=== PATIENT | female | born 1975 | race African-American/Black ===

== ENCOUNTER 2023-12-30 14:21 | Emergency (ER) | payer MEDICARE, MEDICAID ==
[2023-12-30] MEDS ORDERED: Sodium Chloride 0.9% 10 ML Syringe FLUSH PRN (15:11)
[2023-12-30 15:33] LABS: BASOPHILS ABSOLUTE AUTO 0.06 10^3/uL (0.00-0.10); BASOPHILS PERCENT AUTO 1.1 % (0.0-1.0); EOSINOPHILS PERCENT AUTO 3.7 % (1.0-3.0); HEMATOCRIT 37.4 % (37.0-47.0); HEMOGLOBIN 11.8 g/dL (12.0-16.0); LYMPHOCYTES ABSOLUTE AUTO 2.25 10^3/uL (1.00-4.00); LYMPHOCYTES PERCENT AUTO 41.2 % (20.0-40.0); MEAN CORPUSCULAR HEMOGLOBIN 26.4 pg (27.0-31.0); MEAN CORPUSCULAR HGB CONC 31.6 g/dL (32.0-36.0); MEAN CORPUSCULAR VOLUME 83.7 fL (82.0-92.0); MEAN PLATELET VOLUME 11.3 fL (7.4-10.4); MONOCYTES PERCENT AUTO 5.5 % (2.0-8.0); NEUTROPHILS ABSOLUTE AUTO 2.65 10^3/uL (2.50-7.00); NEUTROPHILS PERCENT AUTO 48.5 % (50.0-70.0); PLATELET COUNT,PLT 228 10^3/uL (150-400); RED BLOOD CELL COUNT 4.47 10^6/uL (3.80-5.50); WHITE BLOOD CELL COUNT,WBC 5.46 10^3/uL (5.00-10.00)
[2023-12-30 15:53] LABS: ALANINE AMINOTRANSFERASE,ALT 16 U/L (14-63); ALBUMIN 3.36 g/dL (3.40-5.00); ALKALINE PHOSPHATASE 104 U/L (46-116); ANION GAP 13.3 mmol/L (5-15); ASPARTATE AMNIOTRANSFERASE,AST 13 U/L (15-37); BILIRUBIN TOTAL 0.4 mg/dL (0.2-1.0); BLOOD UREA NITROGEN,BUN 8 mg/dL (7-18); CALCIUM 8.8 mg/dL (8.7-10.3); CARBON DIOXIDE,CO2 27.6 mmol/L (21.0-32.0); CHLORIDE,CL 103 mmol/L (98-107); CREATININE 0.84 mg/dL (0.51-1.17); EST CRCL DRUG DOSING (CG) 64.78 mL/min; GLUCOSE RANDOM 75 mg/dL (70-140); POTASSIUM,K 3.9 mmol/L (3.5-5.1); PROTEIN TOTAL,TP 7.4 g/dL (6.4-8.2); SODIUM,NA 140 mmol/L (136-145)
[2023-12-30 16:04] LABS: ESTIMATED GFR 86 mL/min (>=60)
[2023-12-30 16:05] LABS: B-TYPE NATRIURETIC PEPTIDE,BNP < 5 pg/mL (0-100)
[2023-12-30] MEDS: methylPREDNISolone Sodium Succinate 125 MG/2 ML SDV IVPUSH ONE (16:36)
[2023-12-30] MEDS: Azithromycin 250 MG Tab PO ONE (16:36)
[2023-12-30] MEDS: predniSONE 20 MG Tab PO ONE (16:48)
[2023-12-30 18:07] VITALS: BP 122/73; PULSE 89
== END 2023-12-30 17:00 | disposition home or self-care (01) ==
LOC: KA.ED 14:21
DX: J20.9 Acute bronchitis, unspecified (principal); Z91.010 Allergy to peanuts; Z91.018 Allergy to other foods; Z88.8 Allergy status to other drugs, medicaments and biological substances; Z91.012 Allergy to eggs; Z79.51 Long term (current) use of inhaled steroids; Z79.899 Other long term (current) drug therapy; Z79.84 Long term (current) use of oral hypoglycemic drugs
CPT/HCPCS: 71046; 80053; 83880; 84484; 85025; 96374; 99285-25; A9270-GY; J2930; J7512